=== PATIENT | male | born 1970 | race African-American/Black ===

== ENCOUNTER 2016-12-12 06:23 | Emergency (ER) | payer MEDICAID ==
[~2016-12-12] VITALS: Ht 188 cm; Wt 84.0 kg
[~2016-12-12 06:23] MED LIST: AMLO10TA80 PO; SPIR50TA26 PO
[2016-12-12] MEDS ORDERED: SODIUM CHLORIDE 0.9% 1,000 ML IV ONE (06:36)
[2016-12-12] MEDS ORDERED: ONDANSETRON HCL 4MG/2ML VIAL IV STA (06:36)
[2016-12-12] MEDS ORDERED: FAMOTIDINE 20MG/2ML VIAL IV STA (06:36)
[2016-12-12] MEDS ORDERED: MORPHINE SULFATE 4 MG/ML CPJ (NOT FOR IM USE) IV STA (06:36)
[2016-12-12] MEDS ORDERED: LORAZEPAM 2MG/ML CPJ IV ONE (06:45)
[2016-12-12 07:03] LABS: PARTIAL THROMBOPLASTIN TIME 25.7 sec (24.0-34.0); PROTHROMBIN TIME 10.7 sec
[2016-12-12 07:08] LABS: EOSINOPHILS % 1.6 % (0.0-5.0); HEMATOCRIT. 46.7 % (42.0-52.0); HEMOGLOBIN. 16.3 g/dL (14.0-18.0); LYMPHOCYTES % 17.5 % (20.0-50.0); MEAN CORPUSCULAR HEMOGLOBIN 31.2 pg (28.0-32.0); MEAN CORPUSCULAR HGB CONC 34.9 g/dL (31.0-37.0); MEAN CORPUSCULAR VOLUME 89.4 fL (80.0-94.0); MEAN PLATELET VOLUME 7.3 fl (7.4-10.4); MONOCYTES % 4.9 % (2.0-8.0); PLATELET 459 x1000/uL (130-400); RED BLOOD CELL COUNT 5.22 mill/uL (4.7-6.1); RED CELL DISTRIBUTION WIDTH 15.2 % (11.6-14.6); WHITE BLOOD COUNT 13.2 x1000/uL (4.5-11.0)
[2016-12-12 07:12] LABS: ALANINE AMINOTRANSFERASE 47 IU/L (13-61); ALBUMIN 4.3 g/dL (3.4-5.0); ANION GAP 21; CALCIUM 8.7 mg/dL (8.5-10.1); CARBON DIOXIDE 21 mEq/L (21-32); CHLORIDE 102 mEq/L (98-107); ETHANOL BLOOD 102 mg/dL; INDEX HEMOLYSI 1 (1-3); INDEX ICTERIC 1 (1-4); INDEX LIPEMIC 1 (1-3); LIPASE 93 IU/L (73-393); TROPONIN I < 0.02 ng/mL (0.00-0.04); UREA NITROGEN BLOOD 14 mg/dL (7-21); eGFR > 60 mL/min (>60)
[2016-12-12 08:48] LABS: *AMPHETAMINES SCREEN URINE NEGATIVE (NEGATIVE); *BARBITURATES SCREEN URINE NEGATIVE (NEGATIVE); *BENZODIAZEPINES SCREEN URINE NEGATIVE (NEGATIVE); *COCAINE SCREEN URINE PRESUMTIVE POSITIVE (NEGATIVE); CANNABINOID URINE SCREEN NEGATIVE (NEGATIVE); ECSTASY MDMA SCREEN URINE NEGATIVE (NEGATIVE); METHADONE URINE SCREEN NEGATIVE (NEGATIVE); OPIATES URINE SCREEN PRESUMTIVE POSITIVE (NEGATIVE); PHENCYCLIDINE URINE SCREEN NEGATIVE (NEGATIVE)
[2016-12-12 09:17] VITALS: BP 129/89
== END 2016-12-12 09:18 | disposition home or self-care (01) ==
LOC: ER 06:23
DX: R11.10 Vomiting, unspecified (principal); F10.129 Alcohol abuse with intoxication, unspecified; F14.10 Cocaine abuse, uncomplicated; I10 Essential (primary) hypertension; E78.00 Pure hypercholesterolemia, unspecified; F17.210 Nicotine dependence, cigarettes, uncomplicated; Z79.899 Other long term (current) drug therapy; Y90.5 Blood alcohol level of 100-119 mg/100 ml
CPT/HCPCS: 36415; 71010; 80053; 80305; 83690; 84484; 85025; 85610; 85730; 93005; 96361; 96374; 96375; 99285; G0482; J2060; J2270; J2405; J3490; J7030; Z7610

== ENCOUNTER 2021-02-06 00:35 | Emergency (ER) | payer MEDICAID ==
[~2021-02-06] VITALS: Ht 182.9 cm; Wt 90.0 kg
[2021-02-06 00:35] VITALS: BP 148/90
[~2021-02-06 00:35] MED LIST changes: -SPIR50TA26 PO; +SPIR50TA5 PO
== END 2021-02-06 01:15 | disposition left against medical advice (07) ==
LOC: ER 00:38
DX: F41.9 Anxiety disorder, unspecified (principal); I10 Essential (primary) hypertension; E11.9 Type 2 diabetes mellitus without complications; F20.9 Schizophrenia, unspecified
CPT/HCPCS: 93005; 99281

== ENCOUNTER 2023-03-09 03:11 | Emergency (ER) | payer MEDICAID ==
[~2023-03-09] VITALS: Ht 185.4 cm; Wt 90.0 kg
[2023-03-09 03:12] VITALS: O2SAT 99
[2023-03-09] MEDS ORDERED: ONDANSETRON HCL 4MG/2ML INJ IV STA (07:46)
[2023-03-09] MEDS ORDERED: MORPHINE SULFATE 4 MG/ML CPJ (NOT FOR IM USE) IV STA (07:46)
[2023-03-09] MEDS ORDERED: ONDANSETRON HCL 4MG/2ML INJ IV NR (09:28)
[2023-03-09] MEDS: MORPHINE SULFATE 4 MG/ML CPJ (NOT FOR IM USE) IV NR ×2 (09:39→11:35)
[2023-03-09 10:27] LABS: CHLORIDE 105 mEq/L (98-107)
[2023-03-09 10:30] LABS: PROTHROMBIN TIME 10.9 sec (9.6-11.0)
[2023-03-09 10:42] LABS: EOSINOPHILS % 0.3 % (0.0-5.0); HEMATOCRIT. 45.4 % (42.0-52.0); LYMPHOCYTES % 16.6 % (20.0-50.0); MEAN CORPUSCULAR HEMOGLOBIN 31.9 pg (28.0-32.0); MEAN CORPUSCULAR VOLUME 90.4 fL (80.0-94.0); MEAN PLATELET VOLUME 7.9 fl (7.4-10.4); MONOCYTES % 8.8 % (2.0-8.0); NEUTROPHILS % 73.3 % (40.0-76.0); PLATELET 290 x1000/uL (130-400); RED BLOOD CELL COUNT 5.03 mill/uL (4.7-6.1); RED CELL DISTRIBUTION WIDTH 14.8 % (11.6-14.6)
[2023-03-09] MEDS ORDERED: MORPHINE SULFATE 4 MG/ML CPJ (NOT FOR IM USE) IV ONE (11:15)
[2023-03-09 13:36] VITALS: BP 140/80; PULSE 67; RESP 15; TEMP 98.4
== END 2023-03-09 13:46 | disposition short-term general hospital (02) ==
LOC: ER 03:11 → CANBEDREQ 12:50 → ER 13:46
DX: E11.9 Type 2 diabetes mellitus without complications (principal); R10.9 Unspecified abdominal pain; I10 Essential (primary) hypertension; Z86.59 Personal history of other mental and behavioral disorders; Z20.822 Contact with and (suspected) exposure to COVID-19
CPT/HCPCS: 80053; 83690; 85025; 85610; 36415; 74176; 96374; 96375; 99285; 87426; J2405; J2270; C9803; Z7610 ×3